=== PATIENT | female | born 2000 | race Caucasian/White ===

== ENCOUNTER 2018-03-11 17:59 | Emergency (ER) | payer OTHER ==
[~2018-03-11] VITALS: Ht 149.9 cm; Wt 43.2 kg
[2018-03-11 18:03] VITALS: BP 108/66
== END 2018-03-11 19:39 | disposition home or self-care (01) ==
LOC: ED 19:25
DX: S90.01XA Contusion of right ankle, initial encounter (principal); X58.XXXA Exposure to other specified factors, initial encounter; Y93.89 Activity, other specified; Y99.8 Other external cause status; Y92.69 Other specified industrial and construction area as the place of occurrence of the external cause
CPT/HCPCS: 29515; 99284